=== PATIENT | male | born 1980 | race Caucasian/White ===

== ENCOUNTER 2021-01-01 13:38 | Inpatient (IN) ==
[2021-01-01 14:12] LABS: Basophils % 0.4 %; Eosinophils % 0.4 %; Hematocrit 40.9 % (37.5-50.1); Hemoglobin 13.8 g/dL (12.9-16.9); Immature Granulocytes % 0.4 % (0-4); Lymphocytes # 1.3 K/mcL (0.6-4.6); Lymphocytes % 19.2 %; Mean Corpuscular HGB Conc 33.7 g/dL (31.6-35.5); Mean Corpuscular Hemoglobin 30.1 pg (28.0-33.3); Mean Corpuscular Volume 89.3 fL (83.0-100.0); Mean Platelet Volume 9.4 fL (9.4-12.4); Monocytes # 0.6 K/mcL (0.0-1.3); Monocytes % 8.4 %; Neutrophils # 4.8 K/mcL (1.6-8.9); Platelet Count 242 K/mcL (140-400); Red Blood Count 4.58 M/mcL (4.19-5.50); Red Cell Distribution Width 11.9 % (11.5-14.5); Segmented Neutrophils % 71.2 %; White Blood Count 6.8 K/mcL (4.3-11.1)
[2021-01-01 14:32] LABS: Acetaminophen < 10 mcg/mL (10-20); Alanine Aminotransferase 28 Units/L (7-52); Albumin/Globulin Ratio 1.5 (1.1-2.2); Alkaline Phosphatase 46 Units/L (34-104); Aspartate Amino Transferase 32 Units/L (13-39); BUN/Creatinine Ratio 35 (6-26); Bilirubin,Direct 0.1 mg/dL (0.0-0.2); Bilirubin,Indirect 0.4 mg/dL (0.0-1.0); Bilirubin,Total 0.5 mg/dL (0.3-1.0); Blood Urea Nitrogen 33 mg/dL (6-20); Calcium 9.5 mg/dL (8.6-10.3); Carbon Dioxide 27 mEq/L (23-29); Chloride 105 mEq/L (98-107); Chol/HDL Ratio 3.7 (0-4.9); Cholesterol 156 mg/dL (< 200); Ethanol < 10 mg/dL (Less than 10); Globulin 2.7 g/dL (2.4-3.5); Glucose 133 mg/dL (70-105); HDL Cholesterol 42 mg/dL (40-59); LDL Cholesterol,Calculated 97 mg/dL (< 100); Osmolality,Calculated 293 (280-300); Potassium 3.8 mEq/L (3.5-5.1); Salicylate < 2.5 mg/dL (15.0-30.0); Sodium 137 mEq/L (136-145); Total Protein 6.7 g/dL (6.4-8.9); Triglycerides 84 mg/dL (< 150); eGFR For African Americans > 60 (> 60); eGFR For Non-African Americans > 60 (> 60)
[2021-01-01 14:57] LABS: Bilirubin,Urine Negative (Negative); Blood,Urine Negative (Negative); Clarity,Urine Clear (Clear); Color,Urine Colorless (Yellow); Glucose,Urine (UA) Normal (Normal); Ketones,Urine Negative (Negative); Leukocyte Esterase,Urine Negative (Negative); Nitrite,Urine Negative (Negative); PH,Urine 6.5 pH Units (5.0-8.0); Protein,Urine Negative (Neg-Trace); Specific Gravity,Urine 1.009 (1.010-1.025); Urobilinogen,Urine Normal (Normal)
[2021-01-01 15:07] LABS: Amphetamine Screen,Urine Negative ng/mL (Cutoff=1000); Barbiturate Screen,Urine Negative ng/mL (Cutoff=200); Benzodiazepines Screen,Urine Negative ng/mL (Cutoff=200); Cannabinoid Screen,Urine Negative ng/mL (Cutoff = 50); Cocaine Screen,Urine Negative ng/mL (Cutoff= 300); Opiate Screen,Urine Negative ng/mL (Cutoff=300); Phencyclidine Screen,Urine Negative ng/mL (Cutoff=25)
[2021-01-01 15:20] LABS: Estimated Average Glucose 120 mg/dl; Hemoglobin A1C 5.8 %
[2021-01-01] MEDS ORDERED: Mag Hydrox/Al Hydrox/Simeth 30 ML UDC PO PRN (17:35)
[2021-01-01] MEDS ORDERED: Haloperidol Lactate 5 MG/ML VIAL IM PRN (17:35)
[2021-01-01] MEDS ORDERED: Acetaminophen 325 MG TABLET PO PRN (17:35)
[2021-01-01] MEDS ORDERED: haloperidoL 5 MG TABLET PO PRN (17:35)
[2021-01-01] MEDS ORDERED: *HR* LORazepam 2 MG/ML VIAL IM PRN (17:35)
[2021-01-01] MEDS ORDERED: *HR* LORazepam 1 MG TABLET PO PRN (17:35)
[2021-01-01] MEDS ORDERED: MOM Conc 10 ML UD.LIQ PO PRN (17:35)
[2021-01-02] MEDS ORDERED: risperiDONE 1 MG TABLET PO SCH (21:00)
[2021-01-03] MEDS: risperiDONE 1 MG TABLET PO SCH ×2 (21:32→22:06)
[2021-01-04] MEDS: risperiDONE 1 MG TABLET PO SCH (20:33)
[2021-01-04] MEDS: traZODone 50 MG TABLET PO PRN (20:33)
[2021-01-05] MEDS: risperiDONE 1 MG TABLET PO SCH ×2 (10:32→20:56)
[2021-01-05] MEDS: traZODone 50 MG TABLET PO PRN (20:56)
[2021-01-06] MEDS ORDERED: amLODIPine 5 MG TABLET PO SCH (09:00)
[2021-01-06] MEDS ORDERED: RisperiDONE-M 1 MG TAB.RAPDIS PO SCH (09:45)
[2021-01-06] MEDS: carvediloL 6.25 MG TABLET PO SCH ×2 (09:56→17:53)
[2021-01-06] MEDS: amLODIPine 5 MG TABLET PO SCH (09:56)
[2021-01-06] MEDS: risperiDONE 1 MG TABLET PO SCH (12:58)
[2021-01-06] MEDS: hydrOXYzine pamoate 25 MG CAPSULE PO PRN (20:58)
[2021-01-06] MEDS: RisperiDONE-M 1 MG TAB.RAPDIS PO SCH (20:58)
[2021-01-06] MEDS: traZODone 50 MG TABLET PO PRN (20:58)
[2021-01-07] MEDS: RisperiDONE-M 1 MG TAB.RAPDIS PO SCH ×2 (09:35→21:52)
[2021-01-07] MEDS: amLODIPine 5 MG TABLET PO SCH (09:35)
[2021-01-07] MEDS: carvediloL 6.25 MG TABLET PO SCH ×2 (09:36→17:10)
[2021-01-07] MEDS ORDERED: Perflutren Lipid Microsphere 1.3 ML in 0.9 % Sodium Chloride 8.7 ML IVP PRN (16:15)
[2021-01-07] MEDS: traZODone 50 MG TABLET PO PRN (21:52)
[2021-01-07] MEDS: hydrOXYzine pamoate 25 MG CAPSULE PO PRN (21:52)
[2021-01-07] MEDS: Divalproex (24 HR) 500 MG TABLET PO SCH (21:52)
[2021-01-08] MEDS ORDERED: PALIPERIDONE PALMITATE 234 MG/1.5 ML SYRINGE IM SCH (09:00)
[2021-01-08 09:03] LABS: BUN/Creatinine Ratio 18 (6-26); Blood Urea Nitrogen 17 mg/dL (6-20); Calcium 9.3 mg/dL (8.6-10.3); Carbon Dioxide 26 mEq/L (23-29); Chloride 107 mEq/L (98-107); Glucose 163 mg/dL (70-105); Osmolality,Calculated 297 (280-300); Potassium 3.9 mEq/L (3.5-5.1); Sodium 141 mEq/L (136-145); eGFR For African Americans > 60 (> 60); eGFR For Non-African Americans > 60 (> 60)
[2021-01-08] MEDS: amLODIPine 5 MG TABLET PO SCH (09:39)
[2021-01-08] MEDS: carvediloL 6.25 MG TABLET PO SCH ×2 (09:40→17:49)
[2021-01-08] MEDS: RisperiDONE-M 1 MG TAB.RAPDIS PO SCH ×2 (09:46→20:56)
[2021-01-08] MEDS: hydrOXYzine pamoate 25 MG CAPSULE PO PRN (20:56)
[2021-01-08] MEDS: traZODone 50 MG TABLET PO PRN (20:56)
[2021-01-08] MEDS: Divalproex (24 HR) 500 MG TABLET PO SCH (20:56)
[2021-01-09] MEDS: carvediloL 6.25 MG TABLET PO SCH ×2 (08:30→16:41)
[2021-01-09] MEDS: amLODIPine 5 MG TABLET PO SCH (08:31)
[2021-01-09] MEDS: RisperiDONE-M 1 MG TAB.RAPDIS PO SCH ×2 (08:33→20:47)
[2021-01-09] MEDS: hydrOXYzine pamoate 25 MG CAPSULE PO PRN (20:46)
[2021-01-09] MEDS: Divalproex (24 HR) 500 MG TABLET PO SCH (20:46)
[2021-01-09] MEDS: traZODone 50 MG TABLET PO PRN (20:47)
[2021-01-10] MEDS: amLODIPine 5 MG TABLET PO SCH (09:40)
[2021-01-10] MEDS: carvediloL 6.25 MG TABLET PO SCH ×2 (09:40→17:31)
[2021-01-10] MEDS: RisperiDONE-M 1 MG TAB.RAPDIS PO SCH ×2 (09:42→21:04)
[2021-01-10] MEDS: Divalproex (24 HR) 500 MG TABLET PO SCH (21:04)
[2021-01-11] MEDS: carvediloL 6.25 MG TABLET PO SCH ×2 (09:52→16:10)
[2021-01-11] MEDS: amLODIPine 5 MG TABLET PO SCH (09:52)
[2021-01-11] MEDS: RisperiDONE-M 1 MG TAB.RAPDIS PO SCH ×2 (09:53→20:52)
[2021-01-11] MEDS: Divalproex (24 HR) 500 MG TABLET PO SCH (20:52)
[2021-01-12] MEDS: amLODIPine 5 MG TABLET PO SCH (08:56)
[2021-01-12] MEDS: carvediloL 6.25 MG TABLET PO SCH ×2 (08:56→18:02)
[2021-01-12] MEDS: RisperiDONE-M 1 MG TAB.RAPDIS PO SCH ×2 (08:59→20:45)
[2021-01-12] MEDS ORDERED: PALIPERIDONE PALMITATE 156 MG/ML SYRINGE IM SCH (13:00)
[2021-01-12] MEDS: Divalproex (24 HR) 500 MG TABLET PO SCH (20:45)
[2021-01-13] MEDS: amLODIPine 5 MG TABLET PO SCH (08:38)
[2021-01-13] MEDS: carvediloL 6.25 MG TABLET PO SCH ×2 (08:38→17:44)
[2021-01-13] MEDS: RisperiDONE-M 1 MG TAB.RAPDIS PO SCH ×2 (08:39→20:18)
[2021-01-13] MEDS: Loratadine 10 MG TABLET PO SCH (10:11)
[2021-01-13] MEDS: Divalproex (24 HR) 500 MG TABLET PO SCH (20:18)
[2021-01-14] MEDS: RisperiDONE-M 1 MG TAB.RAPDIS PO SCH ×2 (09:46→19:58)
[2021-01-14] MEDS: carvediloL 6.25 MG TABLET PO SCH ×2 (09:47→17:21)
[2021-01-14] MEDS: Loratadine 10 MG TABLET PO SCH (09:47)
[2021-01-14] MEDS: amLODIPine 5 MG TABLET PO SCH (09:48)
[2021-01-14] MEDS: Divalproex (24 HR) 500 MG TABLET PO SCH (19:58)
[2021-01-15] MEDS ORDERED: amLODIPine 5 MG TABLET PO SCH (09:00)
[2021-01-15] MEDS: carvediloL 6.25 MG TABLET PO SCH (09:59)
[2021-01-15] MEDS: RisperiDONE-M 1 MG TAB.RAPDIS PO SCH (09:59)
[2021-01-15] MEDS: Loratadine 10 MG TABLET PO SCH (09:59)
[2021-01-15 10:08] VITALS: BP 152/90
[2021-01-15] MEDS ORDERED: PALIPERIDONE PALMITATE 156 MG/ML SYRINGE IM SCH ×2 (10:30→13:00)
== END 2021-01-15 15:35 | disposition home or self-care (01) | DRG 885 ==
LOC: EMEROOARM 13:38 → SUATTDRO 17:33 → 1ANU 17:33
PROVIDERS: ADMIT Psychiatry & Neurology Psychiatry; ATTEND Psychiatry & Neurology Forensic Psychiatry

== ENCOUNTER 2022-05-17 23:41 | Inpatient (IN) ==
[2022-05-17] MEDS ORDERED: Ziprasidone 10 MG, Closed System Device IM Kit 1 EACH in Water for inj. (sterile) 0.5 ML IM ONE (23:53)
[2022-05-17] MEDS ORDERED: Water for inj. (sterile) 10 ML ONE (23:57)
[2022-05-17] MEDS ORDERED: Ziprasidone 20 MG/VIAL VIAL IM ONE (23:57)
[2022-05-18] MEDS ORDERED: *HR* LORazepam 2 MG/ML VIAL ONE (00:09)
[2022-05-18] MEDS: *HR* LORazepam 2 MG/ML VIAL IM ONE ×2 (00:14→00:17)
[2022-05-18] MEDS ORDERED: *HR* LORazepam 2 MG/ML VIAL IM ONE (00:14)
[2022-05-18] MEDS ORDERED: *HR* Midazolam HCl 5 MG/ML VIAL IM ONE (00:32)
[2022-05-18 01:06] LABS: Basophils % 0.4 %; Eosinophils # 0.1 K/mcL (0.0-0.6); Eosinophils % 0.7 %; Hematocrit 41.9 % (37.5-50.1); Hemoglobin 14.6 g/dL (12.9-16.9); Immature Granulocytes % 0.9 % (0-4); Lymphocytes # 2.3 K/mcL (0.6-4.6); Lymphocytes % 23.6 %; Mean Corpuscular HGB Conc 34.8 g/dL (31.6-35.5); Mean Corpuscular Hemoglobin 30.7 pg (28.0-33.3); Mean Platelet Volume 10.3 fL (9.4-12.4); Monocytes # 0.8 K/mcL (0.0-1.3); Monocytes % 8.4 %; Neutrophils # 6.5 K/mcL (1.6-8.9); Platelet Count 247 K/mcL (140-400); Red Blood Count 4.76 M/mcL (4.19-5.50); Red Cell Distribution Width 12.2 % (11.5-14.5); White Blood Count 9.8 K/mcL (4.3-11.1)
[2022-05-18 01:09] LABS: Bacteria,Urine Few per hpf (None-Few); Bilirubin,Urine Negative (Negative); Blood,Urine Negative (Negative); Clarity,Urine Clear (Clear); Color,Urine Light-Yellow (Yellow); Glucose,Urine (UA) 300 mg/dL (Normal); Hyaline Casts,Urine Few per lpf (None Seen); Ketones,Urine Trace mg/dL (Negative); Leukocyte Esterase,Urine Negative (Negative); Mucus,Urine Few per lpf (None-Few); Nitrite,Urine Negative (Negative); Protein,Urine 50 mg/dL (Neg-Trace); Squamous Epithelial Cell,Urine Few per hpf (None-Few)
[2022-05-18 01:13] LABS: Estimated Average Glucose 97 mg/dl
[2022-05-18 01:24] LABS: Amphetamine Screen,Urine Negative ng/mL (Cutoff=1000); Barbiturate Screen,Urine Negative ng/mL (Cutoff=200); Benzodiazepines Screen,Urine Negative ng/mL (Cutoff=200); Cannabinoid Screen,Urine Negative ng/mL (Cutoff = 50); Cocaine Screen,Urine Negative ng/mL (Cutoff= 300); Opiate Screen,Urine Negative ng/mL (Cutoff=300); Phencyclidine Screen,Urine Negative ng/mL (Cutoff=25)
[2022-05-18 01:28] LABS: Acetaminophen < 10 mcg/mL (10-20); Alanine Aminotransferase 70 Units/L (7-52); Albumin 4.4 g/dL (3.5-5.7); Albumin/Globulin Ratio 1.6 (1.1-2.2); Alkaline Phosphatase 44 Units/L (34-104); Aspartate Amino Transferase 85 Units/L (13-39); BUN/Creatinine Ratio 9 (6-26); Bilirubin,Direct 0.2 mg/dL (0.0-0.2); Bilirubin,Indirect 0.5 mg/dL (0.0-1.0); Bilirubin,Total 0.7 mg/dL (0.3-1.0); Blood Urea Nitrogen 13 mg/dL (6-20); Calcium 9.2 mg/dL (8.6-10.3); Carbon Dioxide 20 mEq/L (23-29); Chloride 99 mEq/L (98-107); Cholesterol 146 mg/dL (< 200); Ethanol < 10 mg/dL (Less than 10); Globulin 2.8 g/dL (2.4-3.5); Glucose 162 mg/dL (70-105); HDL Cholesterol 49 mg/dL (40-59); LDL Cholesterol,Calculated 77 mg/dL (< 100); Osmolality,Calculated 288 (280-300); Potassium 2.9 mEq/L (3.5-5.1); Salicylate < 2.5 mg/dL (15.0-30.0); Sodium 137 mEq/L (136-145); Total Protein 7.2 g/dL (6.4-8.9); Triglycerides 100 mg/dL (< 150); eGFR For African Americans > 60 (> 60); eGFR For Non-African Americans 54 (> 60)
[2022-05-18] MEDS ORDERED: Potassium Chloride Elixir 20 MEQ/15 ML UDC PO ONE (01:30)
[2022-05-18 02:40] LABS: Influenza A PCR Negative (Negative); Influenza B PCR Negative (Negative); Resp. Syncytial Virus PCR Negative (Negative)
[2022-05-18 02:42] LABS: SARS-CoV-2 by PCR (In House) Negative (Negative)
[2022-05-18] MEDS ORDERED: Potassium Effervescent 25 MEQ TABLET.EFF PO ONE (10:06)
[2022-05-18] MEDS ORDERED: Acetaminophen 325 MG TABLET PO PRN (10:30)
[2022-05-18] MEDS ORDERED: Haloperidol Lactate 5 MG/ML VIAL IM PRN (10:30)
[2022-05-18] MEDS ORDERED: Mag Hydrox/Al Hydrox/Simeth 30 ML UDC PO PRN (10:30)
[2022-05-18] MEDS ORDERED: *HR* LORazepam 2 MG/ML VIAL IM PRN (10:30)
[2022-05-18] MEDS ORDERED: MOM Conc 10 ML UD.LIQ PO PRN (10:30)
[2022-05-18] MEDS ORDERED: hydrOXYzine pamoate 25 MG CAPSULE PO PRN (10:30)
[2022-05-19] MEDS: Divalproex (24 HR) 500 MG TABLET PO SCH ×2 (00:09→22:53)
[2022-05-20] MEDS: carvediloL 6.25 MG TABLET PO SCH ×2 (10:03→17:32)
[2022-05-20] MEDS: amLODIPine 5 MG TABLET PO SCH (10:04)
[2022-05-20] MEDS: QUEtiapine Fumarate 25 MG TABLET PO PRN (23:35)
[2022-05-20] MEDS: Divalproex (24 HR) 500 MG TABLET PO SCH (23:35)
[2022-05-20] MEDS: *HR* LORazepam 1 MG TABLET PO PRN (23:54)
[2022-05-20] MEDS: haloperidoL 5 MG TABLET PO PRN (23:54)
[2022-05-21] MEDS: carvediloL 6.25 MG TABLET PO SCH ×2 (13:59→18:30)
[2022-05-21] MEDS: amLODIPine 5 MG TABLET PO SCH (13:59)
[2022-05-21] MEDS: Divalproex (24 HR) 500 MG TABLET PO SCH (21:17)
[2022-05-22] MEDS: carvediloL 6.25 MG TABLET PO SCH ×2 (09:58→17:00)
[2022-05-22] MEDS: amLODIPine 5 MG TABLET PO SCH (09:58)
[2022-05-22] MEDS: Divalproex (24 HR) 500 MG TABLET PO SCH (22:38)
[2022-05-23] MEDS: amLODIPine 5 MG TABLET PO SCH (13:35)
[2022-05-23] MEDS: carvediloL 6.25 MG TABLET PO SCH ×2 (13:35→17:09)
[2022-05-23] MEDS: Divalproex (24 HR) 500 MG TABLET PO SCH (21:36)
[2022-05-23] MEDS: QUEtiapine Fumarate 25 MG TABLET PO PRN (21:37)
[2022-05-23] MEDS: haloperidoL 5 MG TABLET PO PRN (22:16)
[2022-05-23] MEDS: *HR* LORazepam 1 MG TABLET PO PRN (22:16)
[2022-05-24] MEDS: carvediloL 6.25 MG TABLET PO SCH ×4 (08:12→18:13)
[2022-05-24] MEDS: amLODIPine 5 MG TABLET PO SCH ×2 (08:14→11:39)
[2022-05-24] MEDS: haloperidoL 5 MG TABLET PO PRN (21:15)
[2022-05-24] MEDS: *HR* LORazepam 1 MG TABLET PO PRN (21:15)
[2022-05-24] MEDS: Divalproex (24 HR) 500 MG TABLET PO SCH (21:16)
[2022-05-24] MEDS: QUEtiapine Fumarate 100 MG TABLET PO PRN (21:16)
[2022-05-25] MEDS: carvediloL 6.25 MG TABLET PO SCH ×2 (12:23→17:15)
[2022-05-25] MEDS: amLODIPine 5 MG TABLET PO SCH (12:23)
[2022-05-25] MEDS ORDERED: ARIPiprazole 5 MG TABLET PO STA (14:04)
[2022-05-25] MEDS ORDERED: *HR* LORazepam 2 MG/ML VIAL IM PRN (14:06)
[2022-05-25] MEDS ORDERED: Haloperidol Lactate 5 MG/ML VIAL IM PRN (14:06)
[2022-05-25] MEDS: Divalproex (24 HR) 500 MG TABLET PO SCH (20:38)
[2022-05-25] MEDS: ARIPiprazole 5 MG TABLET PO SCH (20:39)
[2022-05-25] MEDS: QUEtiapine Fumarate 100 MG TABLET PO PRN (20:39)
[2022-05-26] MEDS: carvediloL 6.25 MG TABLET PO SCH ×2 (12:35→18:45)
[2022-05-26] MEDS: amLODIPine 5 MG TABLET PO SCH (12:35)
[2022-05-26] MEDS ORDERED: ARIPiprazole 5 MG TABLET PO SCH (21:00)
[2022-05-26] MEDS: ARIPiprazole 5 MG TABLET PO SCH (21:28)
[2022-05-26] MEDS: QUEtiapine Fumarate 100 MG TABLET PO PRN (21:28)
[2022-05-26] MEDS: Divalproex (24 HR) 500 MG TABLET PO SCH (21:28)
[2022-05-27] MEDS: carvediloL 6.25 MG TABLET PO SCH (09:07)
[2022-05-27] MEDS: amLODIPine 5 MG TABLET PO SCH (20:56)
[2022-05-27] MEDS: Divalproex (24 HR) 500 MG TABLET PO SCH (20:57)
[2022-05-27] MEDS: QUEtiapine Fumarate 100 MG TABLET PO PRN (20:57)
[2022-05-27] MEDS: ARIPiprazole 10 MG TABLET PO SCH (20:57)
[2022-05-27] MEDS ORDERED: carvediloL 6.25 MG TABLET PO SCH (21:00)
[2022-05-28] MEDS ORDERED: carvediloL 6.25 MG TABLET PO SCH (09:00)
[2022-05-28] MEDS: QUEtiapine Fumarate 100 MG TABLET PO PRN (23:03)
[2022-05-28] MEDS: Divalproex (24 HR) 500 MG TABLET PO SCH (23:03)
[2022-05-28] MEDS: carvediloL 25 MG TABLET PO SCH (23:03)
[2022-05-28] MEDS: ARIPiprazole 10 MG TABLET PO SCH (23:04)
[2022-05-28] MEDS: amLODIPine 5 MG TABLET PO SCH (23:04)
[2022-05-29] MEDS: Divalproex (24 HR) 500 MG TABLET PO SCH (21:35)
[2022-05-29] MEDS: amLODIPine 5 MG TABLET PO SCH (21:35)
[2022-05-29] MEDS: ARIPiprazole 10 MG TABLET PO SCH (21:36)
[2022-05-29] MEDS: QUEtiapine Fumarate 100 MG TABLET PO PRN (21:36)
[2022-05-29] MEDS: ARIPiprazole 5 MG TABLET PO SCH (21:36)
[2022-05-29] MEDS: carvediloL 25 MG TABLET PO SCH (21:36)
[2022-05-30] MEDS: QUEtiapine Fumarate 100 MG TABLET PO PRN (21:19)
[2022-05-30] MEDS: amLODIPine 5 MG TABLET PO SCH (21:19)
[2022-05-30] MEDS: ARIPiprazole 10 MG TABLET PO SCH (21:19)
[2022-05-30] MEDS: ARIPiprazole 5 MG TABLET PO SCH (21:19)
[2022-05-30] MEDS: carvediloL 25 MG TABLET PO SCH (21:19)
[2022-05-30] MEDS: Divalproex (24 HR) 500 MG TABLET PO SCH (21:19)
[2022-05-31] MEDS: amLODIPine 5 MG TABLET PO SCH (21:20)
[2022-05-31] MEDS: carvediloL 25 MG TABLET PO SCH (21:20)
[2022-05-31] MEDS: ARIPiprazole 5 MG TABLET PO SCH (21:20)
[2022-05-31] MEDS: QUEtiapine Fumarate 100 MG TABLET PO PRN (21:20)
[2022-05-31] MEDS: ARIPiprazole 10 MG TABLET PO SCH (21:20)
[2022-05-31] MEDS: Divalproex (24 HR) 500 MG TABLET PO SCH (21:20)
[2022-06-01] MEDS ORDERED: ARISTADA PO SCH (12:00)
[2022-06-01] MEDS: amLODIPine 5 MG TABLET PO SCH (21:27)
[2022-06-01] MEDS: ARIPiprazole 5 MG TABLET PO SCH (21:28)
[2022-06-01] MEDS: ARIPiprazole 10 MG TABLET PO SCH (21:28)
[2022-06-01] MEDS: carvediloL 25 MG TABLET PO SCH (21:28)
[2022-06-01] MEDS: Divalproex (24 HR) 500 MG TABLET PO SCH (21:33)
[2022-06-02] MEDS: QUEtiapine Fumarate 100 MG TABLET PO PRN ×2 (00:09→21:17)
[2022-06-02 08:34] LABS: Basophils # 0.1 K/mcL (0.0-0.2); Eosinophils # 0.1 K/mcL (0.0-0.6); Eosinophils % 0.8 %; Hematocrit 45.8 % (37.5-50.1); Hemoglobin 15.6 g/dL (12.9-16.9); Immature Granulocytes % 1.8 % (0-4); Lymphocytes % 33.2 %; Mean Corpuscular HGB Conc 34.1 g/dL (31.6-35.5); Mean Corpuscular Hemoglobin 31.6 pg (28.0-33.3); Mean Corpuscular Volume 92.9 fL (83.0-100.0); Mean Platelet Volume 9.6 fL (9.4-12.4); Monocytes # 0.5 K/mcL (0.0-1.3); Monocytes % 8.9 %; Neutrophils # 3.2 K/mcL (1.6-8.9); Platelet Count 196 K/mcL (140-400); Red Blood Count 4.93 M/mcL (4.19-5.50); Red Cell Distribution Width 12.4 % (11.5-14.5); Segmented Neutrophils % 54.3 %
[2022-06-02 09:01] LABS: Alanine Aminotransferase 37 Units/L (7-52); Albumin 4.2 g/dL (3.5-5.7); Albumin/Globulin Ratio 1.8 (1.1-2.2); Alkaline Phosphatase 77 Units/L (34-104); Aspartate Amino Transferase 18 Units/L (13-39); BUN/Creatinine Ratio 23 (6-26); Bilirubin,Total 0.3 mg/dL (0.3-1.0); Blood Urea Nitrogen 20 mg/dL (6-20); Calcium 9.1 mg/dL (8.6-10.3); Carbon Dioxide 26 mEq/L (23-29); Chloride 107 mEq/L (98-107); Globulin 2.3 g/dL (2.4-3.5); Glucose 96 mg/dL (70-105); Osmolality,Calculated 292 (280-300); Potassium 4.3 mEq/L (3.5-5.1); Sodium 140 mEq/L (136-145); Total Protein 6.5 g/dL (6.4-8.9); Valproate 54 mcg/mL (50-100); eGFR For African Americans > 60 (> 60); eGFR For Non-African Americans > 60 (> 60)
[2022-06-02 09:08] LABS: Thyroid Stimulating Hormone 3.971 mcIU/mL (0.340-5.600)
[2022-06-02 09:51] LABS: Bilirubin,Urine Negative (Negative); Blood,Urine Negative (Negative); Clarity,Urine Clear (Clear); Color,Urine Light-Yellow (Yellow); Glucose,Urine (UA) Normal (Normal); Ketones,Urine Negative (Negative); Leukocyte Esterase,Urine Negative (Negative); Nitrite,Urine Negative (Negative); PH,Urine 6.5 pH Units (5.0-8.0); Protein,Urine Negative (Neg-Trace); Specific Gravity,Urine 1.026 (1.010-1.025); Urobilinogen,Urine Normal (Normal)
[2022-06-02 15:50] LABS: Estimated Average Glucose 97 mg/dl
[2022-06-02] MEDS: ARIPiprazole 5 MG TABLET PO SCH (21:17)
[2022-06-02] MEDS: ARIPiprazole 10 MG TABLET PO SCH (21:18)
[2022-06-02] MEDS: amLODIPine 5 MG TABLET PO SCH (21:18)
[2022-06-02] MEDS: Divalproex (24 HR) 500 MG TABLET PO SCH (21:18)
[2022-06-02] MEDS: carvediloL 25 MG TABLET PO SCH (21:18)
[2022-06-03] MEDS ORDERED: carvediloL 25 MG TABLET PO SCH (12:45)
[2022-06-03] MEDS ORDERED: lisinopriL 20 MG TABLET PO SCH (12:45)
[2022-06-03] MEDS: lisinopriL 20 MG TABLET PO SCH (15:59)
[2022-06-03] MEDS: amLODIPine 5 MG TABLET PO SCH (20:47)
[2022-06-03] MEDS: atenoloL 50 MG TABLET PO SCH (20:47)
[2022-06-03] MEDS: ARIPiprazole 5 MG TABLET PO SCH (20:47)
[2022-06-03] MEDS: Divalproex (24 HR) 500 MG TABLET PO SCH (20:47)
[2022-06-03] MEDS: ARIPiprazole 10 MG TABLET PO SCH (20:47)
[2022-06-03] MEDS: QUEtiapine Fumarate 100 MG TABLET PO PRN (20:47)
[2022-06-04] MEDS: lisinopriL 20 MG TABLET PO SCH (13:39)
[2022-06-04] MEDS: lisinopriL 10 MG TABLET PO SCH (13:40)
[2022-06-04] MEDS: ARIPiprazole 10 MG TABLET PO SCH (21:04)
[2022-06-04] MEDS: atenoloL 50 MG TABLET PO SCH (21:04)
[2022-06-04] MEDS: Divalproex (24 HR) 500 MG TABLET PO SCH (21:04)
[2022-06-04] MEDS: amLODIPine 5 MG TABLET PO SCH (21:04)
[2022-06-04] MEDS: ARIPiprazole 5 MG TABLET PO SCH (21:04)
[2022-06-04] MEDS: QUEtiapine Fumarate 100 MG TABLET PO PRN (21:04)
[2022-06-05] MEDS: lisinopriL 10 MG TABLET PO SCH (08:43)
[2022-06-05] MEDS: amLODIPine 5 MG TABLET PO SCH (20:41)
[2022-06-05] MEDS: ARIPiprazole 10 MG TABLET PO SCH (20:41)
[2022-06-05] MEDS: ARIPiprazole 5 MG TABLET PO SCH (20:41)
[2022-06-05] MEDS: QUEtiapine Fumarate 100 MG TABLET PO PRN (20:41)
[2022-06-05] MEDS: Divalproex (24 HR) 500 MG TABLET PO SCH (20:41)
[2022-06-05] MEDS: atenoloL 50 MG TABLET PO SCH (20:41)
[2022-06-06] MEDS: lisinopriL 10 MG TABLET PO SCH (08:29)
[2022-06-06] MEDS: ARIPiprazole 10 MG TABLET PO SCH (21:24)
[2022-06-06] MEDS: ARIPiprazole 5 MG TABLET PO SCH (21:24)
[2022-06-06] MEDS: QUEtiapine Fumarate 100 MG TABLET PO PRN (21:25)
[2022-06-06] MEDS: atenoloL 50 MG TABLET PO SCH (21:25)
[2022-06-06] MEDS: amLODIPine 5 MG TABLET PO SCH (21:25)
[2022-06-06] MEDS: Divalproex (24 HR) 500 MG TABLET PO SCH (21:25)
[2022-06-07 09:36] VITALS: BP 129/78; PULSE 91; TEMP 98.2; O2SAT 98
[2022-06-07] MEDS: lisinopriL 10 MG TABLET PO SCH (10:24)
== END 2022-06-07 15:30 | disposition home or self-care (01) | DRG 885 ==
LOC: EMEROOARM 23:41 → 1ANU 05-18 10:16 → SUATTDRO 05-18 10:16 → 1ANU 05-18 11:25
PROVIDERS: ADMIT Psychiatry & Neurology Psychiatry; ATTEND Psychiatry & Neurology Forensic Psychiatry